=== PATIENT | female | born 1970 | race Caucasian/White ===

== ENCOUNTER → 2016-08-21 10:33 | Day surgery (SDC) | payer OTHER ==
--- NOTE | 2016-08-15 22:21 | HP ---
PREOPERATIVE HISTORY AND PHYSICAL: DATE OF ADMISSION: 08/21/16 This patient is scheduled for same day surgery admission by Dr. Duncan on 08/21/16. DATE OF PREOPERATIVE HISTORY AND PHYSICAL EXAMINATION: 08/15/16 ATTENDING SURGEON: Omar Duncan MD (dictated by Lisseth Mitchell NP) CHIEF COMPLAINT: Right upper quadrant abdominal pain. HISTORY OF PRESENT ILLNESS: The patient is a 45-year-old female referred to Dr. Duncan from Dr. Unique plummer for evaluation of episodic right upper quadrant pain radiating around to her back. The pain started approximately 6 months ago. It is not clearly related to eating; however, eating can make her feel bloated. She has had occasional nausea, but no vomiting or diarrhea; she denies any change in the color of her urine, stool, or any sera jaundice. She denies any fever, chills, or weight loss. Her workup has included an abdominal ultrasound, which was negative for gallstones and a CCK HIDA, which was notable for a relatively low ejection fraction and also she reports that the CCK completely reproduced her symptoms. Dr. Duncan has examined the patient and reviewed the above findings with her and has recommended laparoscopic cholecystectomy as a same day surgery procedure. Dr. Duncan discussed the nature of the surgical procedure, the relevant risks, benefits, and alternatives and today, I reviewed the typical same day hospitalization as well as the expected postoperative care and recovery. The patient has had a chance to ask questions and stated that she understands the information and is satisfied with the answers given to her questions. She will sign surgical consent on the day of surgery. PAST MEDICAL HISTORY: Significant for anxiety and depression. PAST SURGICAL HISTORY: Breast reduction in December [address] Romano. OB HISTORY: 3, para 2, 1. She is up-to-date with breast exam , mammogram, pelvic, and Pap smear and does not report any problems. Last menstrual started 08/12/16. MEDICATIONS: 1. Paroxetine extended release 25 mg p.o. daily in the morning. 2. Vitamin D3 5000 International Units daily in the morning. ALLERGIES: BENZOYL PEROXIDE. FAMILY HISTORY: Mother had a saddle embolism; no known anesthesia complications or bleeding tendencies. SOCIAL HISTORY: She is and is employed as a business support manager; she is a nonsmoker and drinks less than 1 alcoholic beverage per week. REVIEW OF SYSTEMS: She denies any constitutional symptoms. She denies any cardiovascular symptoms. She denies any history of deep vein thrombosis or pulmonary embolism. She denies any respiratory symptoms; she states with anesthesia in December 2015, she was told that she had a low O2 saturation in the recovery room. She denies any gastrointestinal symptoms other than described in history of present illness. She denies any genitourinary symptoms. She denies musculoskeletal symptoms. She denies any endocrine symptoms. She does have a history of anxiety and depression. She denies any bleeding tendencies and has never received a blood transfusion. PHYSICAL EXAMINATION GENERAL SURVEY: The patient is a 45-year-old female, in no acute distress. VITAL SIGNS: Height 63 inches, weight 188 pounds, body mass index 33, blood pressure 120/84, pulse 66 and regular, respiratory rate 16, and temperature 97.5. HEENT: Benign, anicteric sclerae. NECK: Supple. No cervical lymphadenopathy. BACK: No CVA tenderness. LUNGS: Breath sounds bilaterally clear and equal. HEART: Regular rate and rhythm. No murmurs or rubs appreciated. ABDOMEN: Active bowel sounds. Soft and nondistended. Obese. No obvious masses or organomegaly. Mildly tender right upper quadrant. Negative Aguilera sign. No ventral hernias. PELVIC AND RECTAL: Exams deferred. EXTREMITIES: Warm, nontender, and without edema or skin ulcerations. NEUROLOGIC: Alert and oriented x3. SKIN: Warm, dry, intact, anicteric. IMPRESSION: Chronic cholecystitis. PLAN: Same day surgery admission to Dr. Duncan's service on 08/21/16 , for laparoscopic cholecystectomy. LISSETH MITCHELL NP CC: Dr. Duncan at [facility]; Unique Plummer MD * [id number]/[facility] #: [id number] MTDD
[~2016-08-21 10:33] MED LIST: Buffered Lidocaine 1% SYRIN* 3 ML/SYR SYRINGE INTRADERM ONE; Bupivacaine 0.5% W/EPI SDV* 30 ML VIAL ONE; Dexamethasone IV* 4 MG/ML 1 ML (4 MG) ONE; EPHEDrine (Pressors)* 50 MG/ML VIAL ONE; Esmolol* 10 MG/ML 10 ML (100 mg) ONE; Glycopyrrolate IV* 0.2 MG/ML 1 ML VIAL ONE; HYDROmorphone* 1 MG/ML 1 ML SYR IV PRN; Heparin VIAL(*) 5000 UNITS/ML VIAL (FIVE THOUSAND) ONE; Ketorolac INJ* 30 MG/ML 1 ML VIAL IV PRN; Ketorolac INJ* 30 MG/ML 1 ML VIAL ONE; Lidocaine 2% PF* 5 ML VIAL ONE; Metoclopramide IV* 5 MG/ML 2 ML VIAL IV PRN; Midazolam* 1 MG/ML 2 ML VIAL (2 MG) ONE; Ondansetron INJ* 2 MG/ML VIAL ONE; Propofol* 10 MG/ML 20 ML BTL IV PUSH ONE; ceFAZolin 2 GM PREMIX(*) 2 GM/50 ML BAG IVPB ONE; fentaNYL* 50 MCG/ML 2 ML VIAL (100 MCG VIAL) IV PRN; fentaNYL* 50 MCG/ML 2 ML VIAL (100 MCG VIAL) ONE
[2016-08-21 10:49] LABS: UR Preg Internal Control QC Line Present
[2016-08-21 18:15] VITALS: BP 151/73
--- NOTE | 2016-08-22 06:49 | OP ---
DATE OF OPERATION: 08/21/16 [facility] DATE OF : 72 SURGEON: Omar Duncan MD TERMITE EXTERMINATOR: PATEL Rodriguez ANESTHESIOLOGIST: Perla Lehman MD ANESTHESIA: General endotracheal. PRE-OP DIAGNOSIS: Symptomatic cholelithiasis. POST-OP DIAGNOSIS: Symptomatic cholelithiasis. OPERATIVE PROCEDURE: Laparoscopic cholecystectomy. ESTIMATED BLOOD LOSS: Minimal. IV FLUIDS: Crystalloids. SPECIMENS: Gallbladder. DRAINS: None. COMPLICATIONS: None. COUNTS: The instrument, needle, and sponge counts were correct. DESCRIPTION OF PROCEDURE: The patient was brought to the operating room and placed on the table supine. Sequential compression devices were placed on both lower extremities. General anesthesia was administered. She was administered intravenous antibiotics. The abdomen was prepped and draped in the usual sterile fashion. Time-out was performed. Local anesthetic was infiltrated into the skin and soft tissue prior to making each incision. Entry to the abdomen was through a supraumbilical incision accommodating a 5-mm optical trocar. After accessing the peritoneal cavity, carbon dioxide was insufflated to a pressure of 15 mmHg. Under direct visualization, 12 mm trocars were placed in the subxiphoid position and 2 additional 5 mm trocars were placed in the right upper quadrant. The gallbladder was identified, it appeared to be chronically inflamed with some adhesions of omentum to the fundus. The adhesions were taken down as the fundus was grasped and retracted cephalad. The gallbladder wall was well defined and the peritoneum overlying the triangle of Calot incised and dissected free. The cystic duct and cystic artery were immediately evident and each was dissected out bluntly, doubly clipped, and divided. The gallbladder was then divided from its attachments to the liver using the hook, cautery, and staying in an avascular plane. Once the inadvertent cholecystotomy is created and endoscopic suction was used drain the gallbladder to control spillage. After the gallbladder was freed, it was retrieved through the subxiphoid position using endoscopic retrieval bag. The area of dissection was inspected for hemostasis, which was excellent. The clips were noted to be intact. Copious lavage was performed until clear. Ports were removed and carbon dioxide was released. Skin incisions were closed with 4-0 Monocryl in subcuticular fashion and Steri-Strips applied. The patient tolerated the procedure well, was extubated, and transferred to the recovery room in stable condition. CC: Unique Gilliam MD* [id number]/[facility] #: [id number] SADAF
== END | disposition home or self-care (01) ==
LOC: OR 10:33
PROVIDERS: ATTEND Surgery
DX: K80.10 Calculus of gallbladder with chronic cholecystitis without obstruction (principal); K21.9 Gastro-esophageal reflux disease without esophagitis
CPT/HCPCS: 81025; 88304; J0690; J1100; J1644; J1885; J2250; J2405; J2704; J3010

== ENCOUNTER 2017-10-20 08:50 | Emergency (ER) | payer OTHER ==
[2017-10-20 09:06] VITALS: BP 135/85
--- NOTE | 2017-10-20 13:14 | UC ---
Throat Pain/Nasal Theodore HPI - HPI Summary HPI Summary: c/o sinus congestion with dry cough for the past 5-7 days, states she has chills but has not measured her temperature at home. She states symptoms have worsened on the course of a week with yellow postnasal discharge sometimes tinged with blood. - History of Current Complaint Chief Complaint: UCGeneralIllness Stated Complaint: SINUS PRESSURE Time Seen by Provider: 10/20/17 09:38 Hx Obtained From: Patient Hx Last Menstrual Period: 09/11/17 Onset/Duration: Gradual Onset, Lasting Days Severity: Severe Pain Intensity: 8 Pain Scale Used: 0-10 Numeric Cough: Nonproductive Associated Signs & Symptoms: Positive: Sinus Discomfort, Nasal Discharge Related History: Seasonal Allergies - Epiglottits Risk Factors Epiglottis Risk Factors: Negative - Allergies/Home Medications Allergies/Adverse Reactions: Allergies Allergy/AdvReac Type Severity Reaction Status Date / Time benzoyl peroxide Allergy Itching Verified 10/20/17 09:05 oranges Allergy Severe Hives Uncoded 10/20/17 09:05 PMH/Surg Hx/FS Hx/Imm Hx Previously Healthy: Yes - Surgical History Surgical History: Yes Surgery Procedure, Year, and Place: 12/2015-BREAST REDUCTION- [facility] [place]. CHOLECYSECTOMY 2017 - Family History Known Family History: Positive: Hypertension, Diabetes - Social History Alcohol Use: Occasionally Alcohol Amount: 1-2 DRINKS OCCASIONALLY Substance Use Type: None Smoking Status (MU): Former Smoker Type: Cigarettes Amount Used/How Often: <1/2 PPD X 5 YEARS Length of Time of Smoking/Using Tobacco: 4 Years Have You Smoked in the Last Year: No When Did the Patient Quit Smoking/Using Tobacco: ~1990 Review of Systems ENT: Nasal Discharge, Sinus Pain/Tenderness All Other Systems Reviewed And Are Negative: Yes Physical Exam Triage Information Reviewed: Yes Appearance: Well-Appearing, No Pain Distress, Well-Nourished Vital Signs: Initial Vital Signs Temp 99.7 F 10/20/17 09:01 Pulse 97 10/20/17 09:01 Resp 18 10/20/17 09:01 BP 135/85 10/20/17 09:01 Pulse Ox 98 10/20/17 09:01 Vital Signs Reviewed: Yes Eyes: Positive: Conjunctiva Clear ENT: Positive: Pharynx normal, TMs normal, Sinus tenderness - on maxilla b/l and frontal sinuses, Uvula midline Neck: Positive: Supple, Nontender, No Lymphadenopathy Respiratory: Positive: Chest non-tender, Lungs clear, Normal breath sounds, No respiratory distress Cardiovascular: Positive: RRR, No Murmur, Pulses Normal, Brisk Capillary Refill Throat Pain/Nasal Course/Dx - Course Course Of Treatment: acute sinusitis, proceed with zithromax as prescribed, oral hydration, probiotics and rest. Nasal toileting with normal saline - Differential Dx/Diagnosis Provider Diagnoses: Acute maxillary sinusitis Discharge - Sign-Out/Discharge Documenting (check all that apply): Discharge/Admit/Transfer - Discharge Plan Condition: Stable Disposition: HOME Prescriptions: Azithromycin TAB* [Zithromax TAB (Z-KACIE) 250 mg #6 tabs] 2 tab PO .TODAY, THEN 1 DAILY #1 kacie Patient Education Materials: Azithromycin (By mouth), Sodium Chloride (Into the nose), Sinusitis (ED) Referrals: Unique Gilliam MD [Primary Care Provider] - - Billing Disposition and Condition Condition: STABLE Disposition: Home
== END 2017-10-20 09:51 | disposition home or self-care (01) ==
LOC: UCCORT 08:50
DX: J01.00 Acute maxillary sinusitis, unspecified (principal); Z87.891 Personal history of nicotine dependence
CPT/HCPCS: 99212; G0463